=== PATIENT | male | born 1985 | race Caucasian/White ===

== ENCOUNTER 2021-01-26 20:23 | Emergency (ER) | payer OTHER | END 2021-01-26 22:43 | disposition home or self-care (01) | LOC: ED 20:23 | DX: S89.91XA Unspecified injury of right lower leg, initial encounter (principal); X58.XXXA Exposure to other specified factors, initial encounter; Y93.89 Activity, other specified; Y92.89 Other specified places as the place of occurrence of the external cause; Y99.8 Other external cause status ==

== ENCOUNTER 2021-04-23 11:32 | Emergency (ER) | payer OTHER ==
[~2021-04-23] VITALS: Ht 193 cm; Wt 81.6 kg
== END 2021-04-23 13:27 | disposition home or self-care (01) ==
LOC: ED 11:32
DX: S01.01XA Laceration without foreign body of scalp, initial encounter (principal); W22.8XXA Striking against or struck by other objects, initial encounter; Y93.89 Activity, other specified; Y92.098 Other place in other non-institutional residence as the place of occurrence of the external cause; Y99.8 Other external cause status